=== PATIENT | female | born 1945 | race Caucasian/White ===

== ENCOUNTER 2022-09-01 14:12 | Inpatient (IN) | payer MEDICARE, OTHER, SELFPAY ==
[2022-09-01] VITALS (9 sets, daily range): BP systolic 105–206; BP diastolic 64–119; PULSE 68–90; RESP 14–25; TEMP 36.7–37.1; O2SAT 92–98; BMI 18.8
--- NOTE | 2022-09-01 15:02 | CTR_ITS ---
PROCEDURE INFORMATION: Exam: CT Head Without Contrast Exam date and time: 09/01/2022 3:50 PM Age: 77 years old Clinical indication: Stroke-like symptoms; Dizziness/giddiness; Generalized weakness; Additional info: Symptoms of acute stroke TECHNIQUE: Imaging protocol: Computed tomography of the head without contrast. Radiation optimization: All CT scans at this facility use at least one of these dose optimization techniques: automated exposure control; mA and/or kV adjustment per patient size (includes targeted exams where dose is matched to clinical indication); or iterative reconstruction. Other technique: STROKE PROTOCOL was implemented. REPORTING DATA: Count of CT and Cardiac NM exams in prior 12 months: This patient has received 0 known CTs and 0 known cardiac nuclear medicine studies in the 12 months prior to the current study. COMPARISON: No relevant prior studies available. RADIATION DOSE METRICS: Total DLP (mGy-cm): 967.73 FINDINGS: Brain: Normal. No hemorrhage. Unremarkable white matter. No mass effect. Cerebral ventricles: No ventriculomegaly. Paranasal sinuses: Visualized sinuses are unremarkable. No fluid levels. Mastoid air cells: Visualized mastoid air cells are well aerated. Bones/joints: Unremarkable. No acute fracture. Soft tissues: Unremarkable. CT/CT head thrombolytic 04256 IMPRESSION: No acute intracranial abnormality. ASSESSMENT: ASPECTS ([place] Stroke Program Early CT Score) is 10.
--- NOTE | 2022-09-01 15:10 | W.ED.DIZZY ---
Documented by User: Yossi Cuello DO 09/02/22 05:59 HPI - Dizziness General: Chief Complaint: Dizziness Stated Complaint: high bp, headache Time Seen by Provider: 09/01/22 15:02 Source: patient Mode of arrival: ambulatory History of Present Illness: HPI Narrative: 77-year-old female presents to the emergency room lightheadedness and dizziness seems confused recently. She was seen at a walk-in clinic they gave her last known well time of 123 today however talking to her family this has been going on for several weeks with worsening confusion in the last 24 hours or so. Her true last known well time would have been several weeks ago. She has no focal neurologic deficits. Her stroke score on initial exam is 0. She does have accelerated hypertension on arrival here. She is not currently on any medications she is no recent falls or trauma she does not take any anticoagulants. She denies chest or abdominal pain or any recent illness. MD elicited complaint: dizziness Onset (ago): week(s) (3) Severity: moderate Description: room spinning Exacerbating factors: nothing Relieving factors: nothing Associated symptoms: Denies change in hearing, chest pain, chills, cough, diaphoresis, ear discharge, ear pressure, fevers/chills, headache(s), malaise, nausea, nasal congestion, palpitations, rash, short of breath, syncope, tinnitus, vomiting or weakness Associated neuro symptoms: Deny confusion, difficulty speaking, dysphagia, diplopia, extremity weakness, facial numbness, facial weakness, gait changes, numbness in extremities or visual changes Review of Systems Const: Denies: fever(s), chills, fatigue, malaise or diaphoresis ENMT: Denies: ear discharge, change in hearing, tinnitus or nasal congestion Card: Denies: chest pain, palpitations or syncope Resp: Denies: dyspnea, productive cough or non-productive cough GI: Denies: abdominal pain, nausea, vomiting or dysphagia : Denies: flank pain, difficulty voiding, dysuria, urinary frequency or urinary urgency Skin/Breast: Denies: rash or pruritus Neuro: Denies: headache(s), numbness in extremities or confusion PFSH ED PFSH: Medical History (Updated 09/02/22 @ 05:59 by Yossi Cuello DO) Sciatica Sjogren syndrome with central nervous system involvement Surgical History (Updated 09/01/22 @ 17:23 by Gabriel Cherry MD) History of shoulder surgery Family History (Updated 09/01/22 @ 17:23 by Gabriel Cherry MD) Other Dementia Social History Smoking and tobacco status: never smoked Alcohol intake: never Substance/Drug Use: never Female Reproductive History: Spontaneous abortions: No Physical Exam Const: GENERAL APPEARANCE: cooperative and comfortable ORIENTATION/CONSCIOUSNESS: Yes awake HENMT: COMMON NORMALS: normocephalic, atraumatic and hearing grossly normal bilaterally HEAD & SCALP: normocephalic and atraumatic Resp: COMMON NORMALS: normal respiratory effort, No retractions, No use of accessory muscles and clear to auscultation bilaterally AUSCULTATION: clear to auscultation bilaterally Cardio: COMMON NORMALS: regular rate, regular rhythm and No murmurs present (Cardio) RATE: regular rate RHYTHM: regular rhythm GI: COMMON NORMALS: Soft to palpation and No hepatosplenomegaly present AUSCULTATION: Yes normoactive bowel sounds PALPATION: Yes Soft to palpation, No Tenderness to palpation present (GI), No Guarding due to palpation present (GI) and Yes No hepatosplenomegaly present Extremity: COMMON NORMALS: normal to inspection, capillary refill normal, no clubbing, cyanosis or edema, no calf tenderness and no pedal edema Skin: COMMON NORMALS: no rashes or lesions noted GENERAL SKIN EXAM: no rashes or lesions noted Course Vital Signs: Vital signs: Vital Signs Temperature 97.5 F L 09/02/22 04:00 Pulse Rate 80 09/02/22 04:00 Respiratory Rate 18 09/02/22 04:00 Blood Pressure 160/72 09/02/22 04:00 Pulse Oximetry 97 09/02/22 04:00 Oxygen Delivery Me thod Room Air 09/02/22 00:00 MDM - Dizziness Medical Decision Making Hyponatremia symptomatic, as well as accelerated hypertension. CT of the head negative no focal neurologic deficits suggestive of a CVA or TIA. Other possibilities include progressive neurologic disease worsening of dementia these may also exacerbate her symptoms of hyponatremia. Her markedly elevated blood pressure may also place lateral in her symptoms. Remainder the labs and imaging were reviewed with the patient. Reviewed labs and history with Dr. Suarez as well will admit for symptomatic hyponatremia and accelerated hypertension Patient presents here was being admitted for hyponatremia by Dr. Bowers she went to the bathroom she had fell she likely had a vagal episode with her bowel movement she did hit her head she has a slight nasal fracture no other injuries noted she is stable to go to the floor at this time her blood pressure here is normal EKG was normal she had no chest pain. Medical Records I reviewed the patient's medical records. Lab Data I reviewed the patient's lab results. 09/02/22 00:36 09/02/22 00:36 Radiology Impressions Chest X-Ray 09/01/22 17:01 IMPRESSION: 1. Left humerus surgical hardware in place. 2. Emphysematous changes. Cervical Spine CT 09/01/22 18:39 IMPRESSION: 1. Negative for fracture or dislocation. 2. Emphysematous changes. 3. Biapical pleuroparenchymal fibrosis. Face CT 09/01/22 18:39 IMPRESSION: Mildly depressed nasal bone fracture. Head CT 09/01/22 18:39 IMPRESSION: No acute intracranial abnormality. Laboratory Results WBC 7.0 10^3/uL (4.0-10.0) 09/01/22 15:39 RBC 4.19 10^6/uL (4.1-5.3) 09/01/22 15:39 Hgb 11.9 g/dL (11.5-15.3) 09/01/22 15:39 Hct 35.5 % (37.0-47.0) L 09/01/22 15:39 MCV 84.7 fl (81-99) 09/01/22 15:39 MCH 28.4 pg (28.0-34.0) 09/01/22 15:39 MCHC 33.5 g/dL (30.0-36.0) 09/01/22 15:39 RDW 13.2 % (12.1-15.1) 09/01/22 15:39 Plt Count 304 10^3/cmm (130-400) 09/01/22 15:39 MPV 9.6 fL (7.4-10.4) 09/01/22 15:39 Neut % (Auto) 86.0 % 09/01/22 15:39 Lymph % (Auto) 5.6 % 09/01/22 15:39 [place] % (Auto) 7.6 % 09/01/22 15:39 Eos % (Auto) 0.1 % 09/01/22 15:39 Baso % (Auto) 0.3 % 09/01/22 15:39 Neut # (Auto) 5.98 10^3/uL (1.8-7.7) 09/01/22 15:39 Lymph # (Auto) 0.4 10^3/uL (0.8-4.8) L 09/01/22 15:39 [place] # (Auto) 0.5 10^3/uL (0.2-0.9) 09/01/22 15:39 Eos # (Auto) 0.0 10^3/uL (0.0-0.8) 09/01/22 15:39 Baso # (Auto) 0.0 10^3/uL (0.0-0.1) 09/01/22 15:39 Nucleated RBC % (auto) 0 % 09/01/22 15:39 Nucleated RBCs # 0.0 /100WBC 09/01/22 15:39 PT 12.60 SECONDS (12.1-14.9) 09/01/22 15:39 INR 0.91 (0.8-1.2) 09/01/22 15:39 APTT 24.5 SECONDS (23.9-36.7) 09/01/22 15:39 Sodium 119 mmol/L (136-145) L* 09/01/22 15:39 Potassium 3.9 mmol/L (3.5-5.1) 09/01/22 15:39 Chloride 85 mmol/L (98-107) L 09/01/22 15:39 Carbon Dioxide 24 mmol/L (22-29) 09/01/22 15:39 Anion Gap 13.9 (5-19) 09/01/22 15:39 BUN 8 mg/dL (8-23) 09/01/22 15:39 Creatinine 0.8 mg/dL (0.5-0.9) 09/01/22 15:39 GFR Calculation Not Reportable 09/01/22 15:39 Glucose 105 mg/dL (65-115) 09/01/22 15:39 Calculated Osmolality 247 mOsm/kg (285-295) L 09/01/22 15:39 Calcium 8.6 mg/dL (8.5-10.5) 09/01/22 15:39 Total Bilirubin 0.4 mg/dL (0.15-1.2) 09/01/22 15:39 AST 19 U/L (0-32) 09/01/22 15:39 ALT 8 U/L (0-33) 09/01/22 15:39 Alkaline Phosphatase 101 U/L (35-105) 09/01/22 15:39 Troponin T Baseline 11 ng/L (0-10) H 09/01/22 19:15 Total Protein 8.1 g/dL (6.6-8.7) 09/01/22 15:39 Albumin 4.2 g/dL (3.5-5.2) 09/01/22 15:39 Globulin 3.9 g/dL (1.3-4.6) 09/01/22 15:39 TSH 2.90 uIU/mL (0.27-4.20) 09/01/22 15:39 Random Cortisol 20.03 ug/dL (2.47-19.5) H 09/01/22 15:39 Urine Color Yellow (Yellow) 09/01/22 16:02 Urine Appearance Clear (CLEAR) 09/01/22 16:02 Urine pH 6 (5-7) 09/01/22 16:02 Ur Specific Keller 1.015 (1.005-1.030) 09/01/22 16:02 Urine Protein Trace (Negative) 09/01/22 16:02 Urine Glucose (UA) Norm (Normal) 09/01/22 16:02 Urine Ketones 1+ (Negative) H 09/01/22 16:02 Urine Blood Neg (Negative) 09/01/22 16:02 Urine Nitrate Negative (Negative) 09/01/22 16:02 Urine Bilirubin Neg (Negative) 09/01/22 16:02 Urine Urobilinogen Norm mg/dL (Negative) 09/01/22 16:02 Ur Leukocyte Esterase Negative (Negative) 09/01/22 16:02 Urine RBC None /hpf (0-2) 09/01/22 16:02 Urine WBC 0-4 /hpf (0-5) H 09/01/22 16:02 Ur Squamous Epith Cells 0-4 /hpf (0-5) H 09/01/22 16:02 Amorphous Sediment Not Reportable 09/01/22 16:02 Urine Bacteria Trace /hpf (NONE) 09/01/22 16:02 Ur Random Sodium 85 mmol/L 09/01/22 16:02 Ur Random Potassium 48 mmol/L 09/01/22 16:02 Ur Random Chloride 80 mmol/L 09/01/22 16:02 Urine Opiates Screen Negative ng/mL (Negative) 09/01/22 16:02 Ur Barbiturates Screen Negative ng/mL (Negative) 09/01/22 16:02 Ur Phencyclidine Scrn Negative ng/mL (Negative) 09/01/22 16:02 Ur Amphetamines Screen Negative ng/mL (Negative) 09/01/22 16:02 U Benzodiazepines Scrn Negative ng/mL (Negative) 09/01/22 16:02 Urine Cocaine Screen Negative ng/mL (Negative) 09/01/22 16:02 U Marijuana (THC) Screen Negative ng/mL (Negative) 09/01/22 16:02 Coronavirus 229E (PCR) Not detected (NOT DETECT) 09/01/22 17:35 SARS-CoV-2 (PCR) Not detected (NOT DETECT) 09/01/22 17:35 Discharge Plan Discharge Patient Disposition: Admitted As Inpatient Admit Provider: Gabriel Cherry Clinical Impression: Hyponatremia, Hypertension Condition: Stable Coding Level of Care Code ED Exercise Specialist for Shelton Griggs NIH stroke score NIHSS Level Of Consciousness - 1a: 0 Level Of Consciousness Questions - 1b: Both Correct Level Of Consciousness Commands - 1c: Both Correct Best Gaze - 2: Normal Visual Gong - 3: No Visual Loss Facial Palsy - 4: Normal Motor Arm Right - 5: No Drift Motor Arm Left - 5: No Drift Motor Leg Right - 6: No Drift Motor Leg Left - 6: No Drift Limb Ataxia - 7: Absent Sensory - 8: Normal Best Language - 9: No Aphasia Dysarthia - 10: Normal Extinction And Inattention - 11: 0 Score Total Score: 0 Documented by User: Chayo Granados MD 09/01/22 19:44 HPI - Dizziness General: Chief Complaint: Dizziness Stated Complaint: high bp, headache Time Seen by Provider: 09/01/22 15:02 PFSH ED PFSH: Medical History (Updated 09/02/22 @ 05:59 by Yossi Cuello DO) Sciatica Sjogren syndrome with central nervous system involvement Surgical History (Updated 09/01/22 @ 17:23 by Gabriel Cherry MD) History of shoulder surgery Family History (Updated 09/01/22 @ 17:23 by Gabriel Cherry MD) Other Dementia Social History Smoking and tobacco status: never smoked Alcohol intake: never Substance/Drug Use: never Course Reevaluation(s): Reevaluation #1: Patient fell in the bathroom. She likely had a vagal episode as she did have a bowel movement stood up she is dizzy and passed out she did hit her head nose she now awake and alert her first blood pressure was in the 80s have a fluid bolus: Is now 105/54 EKG is normal we will get scans of her head face and neck at this time Time: 18:30 Vital Signs: Vital signs: Vital Signs Temperature 97.5 F L 09/02/22 04:00 Pulse Rate 80 09/02/22 04:00 Respiratory Rate 18 09/02/22 04:00 Blood Pressure 160/72 09/02/22 04:00 Pulse Oximetry 97 09/02/22 04:00 Oxygen Delivery Me thod Room Air 09/02/22 00:00 MDM - Dizziness Medical Decision Making Patient presents here was being admitted for hyponatremia by Dr. Bowers she went to the bathroom she had fell she likely had a vagal episode with her bowel movement she did hit her head she has a slight nasal fracture no other injuries noted she is stable to go to the floor at this time her blood pressure here is normal EKG was normal she had no chest pain. Lab Data 09/02/22 00:36 09/02/22 00:36 Radiology Impressions Chest X-Ray 09/01/22 17:01 IMPRESSION: 1. Left humerus surgical hardware in place. 2. Emphysematous changes. Cervical Spine CT 09/01/22 18:39 IMPRESSION: 1. Negative for fracture or dislocation. 2. Emphysematous changes. 3. Biapical pleuroparenchymal fibrosis. Face CT 09/01/22 18:39 IMPRESSION: Mildly depressed nasal bone fracture. Head CT 09/01/22 18:39 IMPRESSION: No acute intracranial abnormality. Laboratory Results WBC 7.0 10^3/uL (4.0-10.0) 09/01/22 15:39 RBC 4.19 10^6/uL (4.1-5.3) 09/01/22 15:39 Hgb 11.9 g/dL (11.5-15.3) 09/01/22 15:39 Hct 35.5 % (37.0-47.0) L 09/01/22 15:39 MCV 84.7 fl (81-99) 09/01/22 15:39 MCH 28.4 pg (28.0-34.0) 09/01/22 15:39 MCHC 33.5 g/dL (30.0-36.0) 09/01/22 15:39 RDW 13.2 % (12.1-15.1) 09/01/22 15:39 Plt Count 304 10^3/cmm (130-400) 09/01/22 15:39 MPV 9.6 fL (7.4-10.4) 09/01/22 15:39 Neut % (Auto) 86.0 % 09/01/22 15:39 Lymph % (Auto) 5.6 % 09/01/22 15:39 [place] % (Auto) 7.6 % 09/01/22 15:39 Eos % (Auto) 0.1 % 09/01/22 15:39 Baso % (Auto) 0.3 % 09/01/22 15:39 Neut # (Auto) 5.98 10^3/uL (1.8-7.7) 09/01/22 15:39 Lymph # (Auto) 0.4 10^3/uL (0.8-4.8) L 09/01/22 15:39 [place] # (Auto) 0.5 10^3/uL (0.2-0.9) 09/01/22 15:39 Eos # (Auto) 0.0 10^3/uL (0.0-0.8) 09/01/22 15:39 Baso # (Auto) 0.0 10^3/uL (0.0-0.1) 09/01/22 15:39 Nucleated RBC % (auto) 0 % 09/01/22 15:39 Nucleated RBCs # 0.0 /100WBC 09/01/22 15:39 PT 12.60 SECONDS (12.1-14.9) 09/01/22 15:39 INR 0.91 (0.8-1.2) 09/01/22 15:39 APTT 24.5 SECONDS (23.9-36.7) 09/01/22 15:39 Sodium 119 mmol/L (136-145) L* 09/01/22 15:39 Potassium 3.9 mmol/L (3.5-5.1) 09/01/22 15:39 Chloride 85 mmol/L (98-107) L 09/01/22 15:39 Carbon Dioxide 24 mmol/L (22-29) 09/01/22 15:39 Anion Gap 13.9 (5-19) 09/01/22 15:39 BUN 8 mg/dL (8-23) 09/01/22 15:39 Creatinine 0.8 mg/dL (0.5-0.9) 09/01/22 15:39 GFR Calculation Not Reportable 09/01/22 15:39 Glucose 105 mg/dL (65-115) 09/01/22 15:39 Calculated Osmolality 247 mOsm/kg (285-295) L 09/01/22 15:39 Calcium 8.6 mg/dL (8.5-10.5) 09/01/22 15:39 Total Bilirubin 0.4 mg/dL (0.15-1.2) 09/01/22 15:39 AST 19 U/L (0-32) 09/01/22 15:39 ALT 8 U/L (0-33) 09/01/22 15:39 Alkaline Phosphatase 101 U/L (35-105) 09/01/22 15:39 Troponin T Baseline 11 ng/L (0-10) H 09/01/22 19:15 Total Protein 8.1 g/dL (6.6-8.7) 09/01/22 15:39 Albumin 4.2 g/dL (3.5-5.2) 09/01/22 15:39 Globulin 3.9 g/dL (1.3-4.6) 09/01/22 15:39 TSH 2.90 uIU/mL (0.27-4.20) 09/01/22 15:39 Random Cortisol 20.03 ug/dL (2.47-19.5) H 09/01/22 15:39 Urine Color Yellow (Yellow) 09/01/22 16:02 Urine Appearance Clear (CLEAR) 09/01/22 16:02 Urine pH 6 (5-7) 09/01/22 16:02 Ur Specific Keller 1.015 (1.005-1.030) 09/01/22 16:02 Urine Protein Trace (Negative) 09/01/22 16:02 Urine Glucose (UA) Norm (Normal) 09/01/22 16:02 Urine Ketones 1+ (Negative) H 09/01/22 16:02 Urine Blood Neg (Negative) 09/01/22 16:02 Urine Nitrate Negative (Negative) 09/01/22 16:02 Urine Bilirubin Neg (Negative) 09/01/22 16:02 Urine Urobilinogen Norm mg/dL (Negative) 09/01/22 16:02 Ur Leukocyte Esterase Negative (Negative) 09/01/22 16:02 Urine RBC None /hpf (0-2) 09/01/22 16:02 Urine WBC 0-4 /hpf (0-5) H 09/01/22 16:02 Ur Squamous Epith Cells 0-4 /hpf (0-5) H 09/01/22 16:02 Amorphous Sediment Not Reportable 09/01/22 16:02 Urine Bacteria Trace /hpf (NONE) 09/01/22 16:02 Ur Random Sodium 85 mmol/L 09/01/22 16:02 Ur Random Potassium 48 mmol/L 09/01/22 16:02 Ur Random Chloride 80 mmol/L 09/01/22 16:02 Urine Opiates Screen Negative ng/mL (Negative) 09/01/22 16:02 Ur Barbiturates Screen Negative ng/mL (Negative) 09/01/22 16:02 Ur Phencyclidine Scrn Negative ng/mL (Negative) 09/01/22 16:02 Ur Amphetamines Screen Negative ng/mL (Negative) 09/01/22 16:02 U Benzodiazepines Scrn Negative ng/mL (Negative) 09/01/22 16:02 Urine Cocaine Screen Negative ng/mL (Negative) 09/01/22 16:02 U Marijuana (THC) Screen Negative ng/mL (Negative) 09/01/22 16:02 Coronavirus 229E (PCR) Not detected (NOT DETECT) 09/01/22 17:35 SARS-CoV-2 (PCR) Not detected (NOT DETECT) 09/01/22 17:35 Discharge Plan Discharge Patient Disposition: Admitted As Inpatient Admit Provider: Gabriel Cherry Clinical Impression: Hyponatremia, Hypertension Condition: Stable Coding Level of Care Code ED Exercise Specialist for Ebonyg Anson NIH stroke score Score Total Score: 0
--- NOTE | 2022-09-01 15:17 | ECG_ITS ---
[facility] Test Date: 2022-09-01 Pat Name: Maik Page Department: Room: Gender: Female Polymer Specialist: : 1945 Requested By: Yossi Etienne Order Number: [id number] Reading MD: Nate Wilson M.D. Measurements Intervals Castell Rate: 69 P: 60 LA: 142 QRS: -67 QRSD: 97 T: 55 QT: 402 QTc: 432 Interpretive Statements SINUS RHYTHM INCOMPLETE RIGHT BUNDLE BRANCH BLOCK [90+ ms QRS DURATION, TERMINAL R IN V1/V2, 40+ ms S IN I/aVL/V4/V5/V6] LEFT ANTERIOR FASCICULAR BLOCK [QRS AXIS <= -45, QR IN I, RS IN II] POSSIBLE LATERAL MYOCARDIAL INFARCTION , PROBABLY OLD [30 ms Q WAVE IN I/aVL/V5/V6] No previous ECG available for comparison Electronically Signed On 09-01-2022 17:09:22 CDT by Nate Wilson M.D. [email or web address]
[2022-09-01] MEDS: labetalol 5 mg/mL SDV 20mL 10 MG IVP (15:29)
[2022-09-01] MEDS: amlodipine 10 mg Tablet PO (15:29)
[2022-09-01 15:46] LABS: Basophils % 0.3 %; Eosinophils % 0.1 %; Hematocrit 35.5 % (37.0-47.0); Hemoglobin 11.9 g/dL (11.5-15.3); Lymphocytes # 0.4 10^3/uL (0.8-4.8); Lymphocytes % 5.6 %; Mean Corpuscular HGB Conc 33.5 g/dL (30.0-36.0); Mean Corpuscular Hemoglobin 28.4 pg (28.0-34.0); Mean Corpuscular Volume 84.7 fl (81-99); Mean Platelet Volume 9.6 fL (7.4-10.4); Monocytes # 0.5 10^3/uL (0.2-0.9); Monocytes % 7.6 %; Neutrophils # 5.98 10^3/uL (1.8-7.7); Nucleated Red Blood Cells % 0 %; Platelet Count 304 10^3/cmm (130-400); Red Blood Count 4.19 10^6/uL (4.1-5.3); Red Cell Distribution Width 13.2 % (12.1-15.1)
[2022-09-01 16:01] LABS: INR 0.91 (0.8-1.2)
[2022-09-01 16:02] LABS: Partial Thromboplastin Time 24.5 SECONDS (23.9-36.7)
[2022-09-01 16:07] LABS: Alanine Aminotransferase 8 U/L (0-33); Albumin Level 4.2 g/dL (3.5-5.2); Alkaline Phosphatase 101 U/L (35-105); Anion Gap 13.9 (5-19); Aspartate Amino Transferase 19 U/L (0-32); Blood Urea Nitrogen 8 mg/dL (8-23); Calcium 8.6 mg/dL (8.5-10.5); Carbon Dioxide 24 mmol/L (22-29); Chloride 85 mmol/L (98-107); Creatinine Clr Calc Pharmacy 50.6247; Globulin 3.9 g/dL (1.3-4.6); Glucose 105 mg/dL (65-115); Osmolality Calculated 247 mOsm/kg (285-295); Potassium 3.9 mmol/L (3.5-5.1); Total Bilirubin 0.4 mg/dL (0.15-1.2); Total Protein 8.1 g/dL (6.6-8.7)
[2022-09-01 16:13] LABS: Sodium 119 mmol/L (136-145)
[2022-09-01 16:37] LABS: Amphetamines Screen Urine Negative (Negative); Barbiturates Screen Urine Negative (Negative); Benzodiazepines Screen Urine Negative (Negative); Cocaine Screen Urine Negative (Negative); Opiate Screen Urine Negative (Negative); PCP Screen Urine Negative (Negative); THC Screen Urine Negative (Negative)
[2022-09-01 16:39] LABS: Add Urine Microscopic? YES; Bilirubin Urine Neg (Negative); Blood Urine Neg (Negative); Glucose Urine UA Norm (Normal); Ketones Urine 1+ (Negative); Leukocyte Esterase Urine Negative (Negative); Nitrate Urine Negative (Negative); Protein Urine Trace (Negative); Specific Gravity, Urine 1.015 (1.005-1.030); Urine Appearance Clear (CLEAR); Urine Color Yellow (Yellow); Urobilinogen Urine Norm (Negative); WBC Urine 0-4 /hpf (0-5); pH Urine 6 (5-7)
[2022-09-01 16:40] LABS: Add Urine Culture? No; Bacteria Urine TRACE /hpf; Squamous Epithelial Cell Urine 0-4 /hpf (0-5)
--- NOTE | 2022-09-01 17:01 | XRR_ITS ---
PROCEDURE INFORMATION: Exam: XR Chest Exam date and time: 09/01/2022 5:09 PM Age: 77 years old Clinical indication: Other: Hyponatremia TECHNIQUE: Imaging protocol: Radiologic exam of the chest. Views: 1 view. COMPARISON: No relevant prior studies available. FINDINGS: Lungs: Emphysematous changes. Pleural spaces: Unremarkable. No pleural effusion. No pneumothorax. Heart/Mediastinum: Unremarkable. No cardiomegaly. Bones/joints: Left humerus surgical hardware in place. XR/XR chest 1V portable [id number] IMPRESSION: 1. Left humerus surgical hardware in place. 2. Emphysematous changes.
--- NOTE | 2022-09-01 17:18 | PM.HP ---
Providers/Chief Complaint Admitting Physician: Gabriel Cherry MD, hospitalist Primary Care Provider: Andres Poole DO Chief Complaint: high bp, headache History of Present Illness Maik Page is a 77 year old female with history of Sjogren's syndrome who presents to the hospital with complaints of dizziness, headache, some nausea for approximately the last 24 hours. She reports the headache is frontal. She has not vomited. She has had no diarrhea, fever. Has had a slight cough, which is nonproductive. Denies any weakness on one side of the other. Has been taking some ibuprofen lately for headache. No new medications. States she drinks a lot of water secondary to her Sjogren's. Review of Systems General: Reports: 10 or more systems reviewed and unremarkable except in HPI and below Const: Reports: fatigue; Denies: fever(s) or chills Card: Denies: chest pain Resp: Reports: non-productive cough; Denies: dyspnea GI: Denies: hematochezia or melena Neuro: Reports: headache(s) and dizziness; Denies: weakness in extremities Medications/Allergies Home Medications Medication Instructions Recorded Confirmed Last Taken Type cevimeline 30 mg capsule 30 mg PO BID 09/01/22 09/01/22 09/01/22 History ibuprofen 200 mg capsule 600 mg PO Q6H PRN Pain 09/01/22 09/01/22 Unknown History triamcinolone acetonide 0.1 % 1 applic dental BID 09/01/22 09/01/22 Unknown History dental paste Allergies Allergy/AdvReac Type Severity Reaction Status Date / Time No Known Allergies Allergy Verified 09/01/22 13:06 PFSH Acute PFSH: Medical History (Updated 09/01/22 @ 17:30 by Gabriel Cherry MD) Sciatica Sjogren syndrome with central nervous system involvement Surgical History (Updated 09/01/22 @ 17:23 by Gabriel Cherry MD) History of shoulder surgery Family History (Updated 09/01/22 @ 17:23 by Gabriel Cherry MD) Other Dementia Social History Smoking and tobacco status: never smoked Alcohol intake: never Substance/Drug Use: never Female Reproductive History: Spontaneous abortions: No Vitals/I&O/Wt Last Vital Signs Temp 98.0 F 09/01/22 14:20 Pulse 74 09/01/22 17:01 Resp 21 H 09/01/22 17:01 BP 137/119 09/01/22 17:01 Pulse Ox 95 09/01/22 17:01 O2 Del Method Room Air 09/01/22 14:20 Weight last 48 hrs Weight 49.895 kg Physical Exam Narrative: General exam is a white female, no distress HEENT: Pupils equally round. Oropharynx clear. Neck is supple no lymphadenopathy thyromegaly Cardiovascular regular rate and rhythm, no murmur Lungs clear no crackles. A few faint wheezes are heard Abdomen is soft nontender positive bowel sounds. No obvious organomegaly exam is deferred Extremities no cyanosis clubbing or edema, cap refill brisk Skin no rash Neuro no focal deficits Data 09/01/22 15:39 09/01/22 15:39 Other Labs: INR is normal LFTs are normal Calcium 8.6 I have ordered a TSH and cortisol level Albumin normal at 4.2 Urinalysis with a specific gravity of 1.015 I have ordered urine electrolytes Urine drug screen negative EKG demonstrates normal sinus rhythm, left axis deviation, right bundle branch block CT head demonstrated no acute changes I have ordered a chest x-ray, reviewed this personally and this demonstrates some previous shoulder surgery, possible COPD A&P Assessment and plan (1) Hyponatremia: Patient presents with hyponatremia, with some symptoms of dizziness and slight nausea. It is unknown the chronicity but she seems to think she was told she had some degree of hyponatremia 4 to 6 months ago. Unfortunately we do not have any laboratory here. Admission She does not appear to have any evidence of fluid overload. 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 Check urine electrolytes. Repeat sodium in 4 hours Restrict fluids Start salt tablets Lasix 20 mg IV x1. She did receive some fluid in the emergency department. Check TSH and cortisol level (2) Hypertension: Patient with markedly elevated blood pressure on arrival. Etiology could be headache, or she could have an underlying issue with hypertension She has received Norvasc 10 mg in the emergency department Add hydralazine as needed Plan Other medical problems as outlined in past medical history Full code Lovenox for DVT prophylaxis Attestations Medical Necessity Statement*: Will require greater than 2 midnight stay for evaluation and treatment of hyponatremia Coding Level of Care Code Acute Code for Chg Fwd Diagnoses Hyponatremia E87.1 Hypertension I10
[2022-09-01] MEDS: FUROsemide 10 mg/mL SDV 2mL 20 MG IVP (17:26)
[2022-09-01] MEDS: hyDRALAzine 20 mg/mL INJ 1 mL 10 MG IVP (17:36)
--- NOTE | 2022-09-01 18:39 | CTR_ITS ---
PROCEDURE INFORMATION: Exam: CT Head Without Contrast Exam date and time: 09/01/2022 6:56 PM Age: 77 years old Clinical indication: Injury or trauma; Fall; Concussion/head injury; Without loss of consciousness TECHNIQUE: Imaging protocol: Computed tomography of the head without contrast. Radiation optimization: All CT scans at this facility use at least one of these dose optimization techniques: automated exposure control; mA and/or kV adjustment per patient size (includes targeted exams where dose is matched to clinical indication); or iterative reconstruction. REPORTING DATA: Count of CT and Cardiac NM exams in prior 12 months: This patient has received 0 known CTs and 0 known cardiac nuclear medicine studies in the 12 months prior to the current study. COMPARISON: CT head thrombolytic [id number] 09/01/2022 3:50 PM RADIATION DOSE METRICS: Total DLP (mGy-cm): 1088.85 FINDINGS: Brain: Normal. No hemorrhage. Unremarkable white matter. No mass effect. Cerebral ventricles: No ventriculomegaly. Paranasal sinuses: Visualized sinuses are unremarkable. No fluid levels. Mastoid air cells: Visualized mastoid air cells are well aerated. Bones/joints: Unremarkable. No acute fracture. Soft tissues: Unremarkable. CT/CT head wo con* [id number] IMPRESSION: No acute intracranial abnormality.
--- NOTE | 2022-09-01 18:39 | CTR_ITS ---
PROCEDURE INFORMATION: Exam: CT Cervical Spine Without Contrast Exam date and time: 09/01/2022 6:56 PM Age: 77 years old Clinical indication: Injury or trauma; Fall; Concussion/head injury TECHNIQUE: Imaging protocol: Computed tomography of the cervical spine without contrast. Radiation optimization: All CT scans at this facility use at least one of these dose optimization techniques: automated exposure control; mA and/or kV adjustment per patient size (includes targeted exams where dose is matched to clinical indication); or iterative reconstruction. REPORTING DATA: Count of CT and Cardiac NM exams in prior 12 months: This patient has received 0 known CTs and 0 known cardiac nuclear medicine studies in the 12 months prior to the current study. COMPARISON: CT head thrombolytic [id number] 09/01/2022 3:50 PM RADIATION DOSE METRICS: Total DLP (mGy-cm): 146.1 FINDINGS: Bones/joints: No acute fracture. Normal alignment. C2-C3: No significant disc bulge or herniation. No severe spinal canal stenosis. No significant neural foraminal narrowing. C3-C4: No significant disc bulge or herniation. No severe spinal canal stenosis. No significant neural foraminal narrowing. C4-C5: No significant disc bulge or herniation. No severe spinal canal stenosis. No significant neural foraminal narrowing. C5-C6: No significant disc bulge or herniation. No severe spinal canal stenosis. No significant neural foraminal narrowing. C6-C7: No significant disc bulge or herniation. No severe spinal canal stenosis. No significant neural foraminal narrowing. C7-T1: No significant disc bulge or herniation. No severe spinal canal stenosis. No significant neural foraminal narrowing. Lungs: Emphysematous changes. Biapical pleuroparenchymal fibrosis. Soft tissues: Carotid artery atherosclerotic calcifications. CT/CT cervical spin wo con* [id number] IMPRESSION: 1. Negative for fracture or dislocation. 2. Emphysematous changes. 3. Biapical pleuroparenchymal fibrosis.
--- NOTE | 2022-09-01 18:39 | CTR_ITS ---
PROCEDURE INFORMATION: Exam: CT Maxillofacial Without Contrast Exam date and time: 09/01/2022 7:01 PM Age: 77 years old Clinical indication: Injury or trauma; Fall; Concussion/head injury; Without loss of consciousness TECHNIQUE: Imaging protocol: Computed tomography of the face without contrast. Radiation optimization: All CT scans at this facility use at least one of these dose optimization techniques: automated exposure control; mA and/or kV adjustment per patient size (includes targeted exams where dose is matched to clinical indication); or iterative reconstruction. REPORTING DATA: Count of CT and Cardiac NM exams in prior 12 months: This patient has received 0 known CTs and 0 known cardiac nuclear medicine studies in the 12 months prior to the current study. COMPARISON: CT head wo con* [id number] 09/01/2022 6:56 PM RADIATION DOSE METRICS: Total DLP (mGy-cm): 578.08 FINDINGS: Orbital cavities: Orbits are normal. Globes are unremarkable. Bones/joints: Mildly depressed nasal bone fracture. Paranasal sinuses: Normal. No air-fluid levels. Soft tissues: Unremarkable. CT/CT facial bones wo con* [id number] IMPRESSION: Mildly depressed nasal bone fracture.
[2022-09-01] MEDS: sodium chloride 0.9% 1,000 ML 999 ML IV (18:45)
[2022-09-01 18:59] LABS: Potassium, Radom Urine 48 mmol/L; Urine Random Chloride 80 mmol/L; Urine Random Sodium 85 mmol/L
--- NOTE | 2022-09-01 19:03 | PC.NURSE ---
Patient was assisted to the bathroom, shortly after that, the emergency call light went off. When Franklin entered the bathroom, the patient was on the floor with a small amount of blood next to her and on her face. I called for the charge nurse and Dr. Granados to come assist. Franklin assessed the pt, she was awake, she had no neck or back pain. She was assisted to a bed and taken back to her room. Her BP was 89/62, we started a fluids. Patient was awake talking to us in the room.
[2022-09-01 19:55] LABS: Adenovirus Not Detected (NOT DETECT); Chlamydia Pneumoniae Not Detected (NOT DETECT); Coronavirus 229E,HKU1,NL63,OC4 Not Detected (NOT DETECT); Human Metapneumovirus Not Detected (NOT DETECT); Human Rhinovirus/Enterovirus Not Detected (NOT DETECT); Influenza A Not Detected (NOT DETECT); Influenza A H1 Not Detected (NOT DETECT); Influenza A H1-2009 Not Detected (NOT DETECT); Influenza A H3 Not Detected (NOT DETECT); Influenza B Not Detected (NOT DETECT); Mycoplasma Pneumoniae Not Detected (NOT DETECT); Parainfluenza Virus Type 1 Not Detected (NOT DETECT); Parainfluenza Virus Type 2 Not Detected (NOT DETECT); Parainfluenza Virus Type 3 Not Detected (NOT DETECT); Parainfluenza Virus Type 4 Not Detected (NOT DETECT); Respiratory Syncytial Virus A Not Detected (NOT DETECT); Respiratory Syncytial Virus B Not Detected (NOT DETECT); SARS-COV-2 Not Detected (NOT DETECT)
[2022-09-01 19:56] LABS: Troponin(5th) Baseline 11 ng/L (0-10)
--- NOTE | 2022-09-01 20:10 | PC.NURSE ---
Received report from Franklin COLLINS at 1900.
[2022-09-01 20:26] LABS: Cortisol Random 20.03 ug/dL (2.47-19.5)
--- NOTE | 2022-09-01 20:38 | ECG_ITS ---
[facility] Test Date: 2022-09-01 Pat Name: Maik Page Department: Room: Gender: Female Lean Specialist: : [id number] Requested By: Chayo Granados Order Number: [id number] Vasiliy MD: Nik Herman M.D. Measurements Intervals [place] Rate: 64 P: 65 PA: 170 QRS: -72 QRSD: 111 T: 60 QT: 441 QTc: 457 Interpretive Statements SINUS RHYTHM INCOMPLETE RIGHT BUNDLE BRANCH BLOCK [90+ ms QRS DURATION, TERMINAL R IN V1/V2, 40+ ms S IN I/aVL/V4/V5/V6] LEFT ANTERIOR FASCICULAR BLOCK [QRS AXIS <= -45, QR IN I, RS IN II] Compared to ECG 09/01/2022 15:17:47 Myocardial infarct finding no longer present Electronically Signed On 09-02-2022 11:54:50 CDT by Nik Herman M.D. [id number]
[2022-09-01 21:25] LABS: Troponin 5 2HR 10.66 ng/L (0-10)
[2022-09-01 21:26] LABS: Blood Urea Nitrogen 8 mg/dL (8-23); Calcium 8.8 mg/dL (8.5-10.5); Carbon Dioxide 21 mmol/L (22-29); Creatinine Clr Calc Pharmacy 50.6247; Glucose 149 mg/dL (65-115)
[2022-09-01] MEDS: enoxaparin 40 mg/0.4 mL Syringe SUBCUT (21:26)
[2022-09-01] MEDS: sodium chloride 1 gm Tablet PO (21:26)
[2022-09-01 21:29] LABS: Troponin 5 2HR Delta -0.34 ABS# (0-10)
[2022-09-01 21:38] LABS: Anion Gap 19.6 (5-19); Chloride 84 mmol/L (98-107); Osmolality Calculated 253 mOsm/kg (285-295); Potassium 3.6 mmol/L (3.5-5.1); Sodium 121 mmol/L (136-145)
[2022-09-01] MEDS: acetaminophen 325 mg Tablet 650 MG PO (23:00)
[2022-09-02] VITALS (8 sets, daily range): BP systolic 124–160; BP diastolic 54–90; PULSE 71–81; RESP 15–20; TEMP 36.4–37; O2SAT 94–97
[2022-09-02 00:43] LABS: Basophils % 0.2 %; Eosinophils % 0.1 %; Hematocrit 33.4 % (37.0-47.0); Hemoglobin 11.2 g/dL (11.5-15.3); Lymphocytes # 0.4 10^3/uL (0.8-4.8); Lymphocytes % 3.5 %; Mean Corpuscular HGB Conc 33.5 g/dL (30.0-36.0); Mean Corpuscular Hemoglobin 28.1 pg (28.0-34.0); Mean Corpuscular Volume 83.9 fl (81-99); Mean Platelet Volume 9.3 fL (7.4-10.4); Monocytes # 0.6 10^3/uL (0.2-0.9); Monocytes % 4.9 %; Neutrophils % 90.9 %; Nucleated Red Blood Cells % 0 %; Platelet Count 282 10^3/cmm (130-400); Red Blood Count 3.98 10^6/uL (4.1-5.3); Red Cell Distribution Width 13.2 % (12.1-15.1)
[2022-09-02 01:02] LABS: Troponin 5 6HR 15.15 ng/L (0-10)
[2022-09-02 01:06] LABS: Alanine Aminotransferase 9 U/L (0-33); Albumin Level 3.9 g/dL (3.5-5.2); Alkaline Phosphatase 93 U/L (35-105); Anion Gap 16.3 (5-19); Aspartate Amino Transferase 16 U/L (0-32); Blood Urea Nitrogen 7 mg/dL (8-23); Calcium 8.2 mg/dL (8.5-10.5); Carbon Dioxide 23 mmol/L (22-29); Chloride 87 mmol/L (98-107); Creatinine Clr Calc Pharmacy 50.6247; Globulin 3.7 g/dL (1.3-4.6); Glucose 134 mg/dL (65-115); Osmolality Calculated 256 mOsm/kg (285-295); Potassium 3.3 mmol/L (3.5-5.1); Sodium 123 mmol/L (136-145); Total Bilirubin 0.5 mg/dL (0.15-1.2); Total Protein 7.6 g/dL (6.6-8.7)
[2022-09-02 01:09] LABS: Troponin 5 6HR Delta 4.15 ng/L (0-12)
[2022-09-02] MEDS: amlodipine 10 mg Tablet PO (08:10)
[2022-09-02] MEDS: sodium chloride 1 gm Tablet PO ×2 (08:10→17:36)
[2022-09-02] MEDS: potassium chloride ER 20 mEq Tablet 40 MEQ PO (08:10)
--- NOTE | 2022-09-02 10:03 | PM.PN ---
Subjective Subjective: Patient reports she is feeling better. More alert. Headache much improved. Believes she is much more clear. She fell in the emergency department, on the way to the bathroom yesterday. Repeat imaging was done, demonstrating a nasal bone fracture. Nurse relates she is ambulating well this morning Medications: Reviewed: Yes Vitals/I&O/Wt Last Vital Signs Temp 98.3 F 09/02/22 07:23 Pulse 71 09/02/22 07:23 Resp 16 09/02/22 07:23 BP 160/76 09/02/22 07:23 Pulse Ox 94 09/02/22 07:23 O2 Del Method Room Air 09/02/22 07:23 09/01/22 09/02/22 09/02/22 22:59 06:59 14:59 Intake Total 1000 / 1000 360 / 360 Output Total 200 / 200 Balance 800 / 800 360 / 360 Weight last 48 hrs Weight 49.895 kg Weight 49.895 kg Physical Exam Narrative: General exam is a white female, no distress, alert and oriented and much more interactive HEENT: Pupils equally round. Oropharynx clear. Contusion noted upper area of nose, with edema Neck is supple no lymphadenopathy thyromegaly Cardiovascular regular rate and rhythm, no murmur Lungs clear no crackles. A few faint wheezes are heard Abdomen is soft nontender positive bowel sounds. No obvious organomegaly Extremities no cyanosis clubbing or edema, cap refill brisk Neuro no focal deficits Data 09/02/22 00:36 09/02/22 00:36 A&P Assessment and plan (1) Hyponatremia: Patient presents with hyponatremia, with some symptoms of dizziness and slight nausea. It is unknown the chronicity but she seems to think she was told she had some degree of hyponatremia 4 to 6 months ago. Unfortunately we do not have any laboratory here. She does not appear to have any evidence of fluid overload. 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 She did receive some fluid in the emergency department. Check TSH and cortisol level Repeat sodium at 1300. Repeat CBC and BMP tomorrow (2) Hypertension: Patient with markedly elevated blood pressure on arrival. Etiology could be headache, or she could have an underlying issue with hypertension She has received Norvasc 10 mg in the emergency department Continue Norvasc 10 mg daily Add hydralazine as needed Plan Mild hypokalemia, supplement Other medical problems as outlined in past medical history Full code Lovenox for DVT prophylaxis Attestations Medical Necessity Statement*: Needs continued hospitalization secondary to symptomatic hyponatremia, currently being corrected Diagnoses Hyponatremia E87.1 Hypertension I10 Time Spent (min) 26
--- NOTE | 2022-09-02 10:59 | PC.CHAP ---
Pastoral Care Encounter/Spiritual Assessment Type of Contact [] Declined email marketing specialist visit [] Patient/Family/Request visit [] Outpatient visit [] Follow-up visit [] Physician referral [] Code/Alert [x] Routine visit [] Staff referral [] Actively dying [] Patient sleeping [] Family support [] [] Out of room [] Palliative care [] [] Receiving care in room [] Pre-surgical visit [] Trauma [] Long length of stay [] ICU visit [] Other: Relational/Emotional Strength [x] Patient feels connected with others/family/visitors/staff [] Distress [] Loneliness/isolation [] Abandonment Spirituality of Patient [x] Person of [place] [] Attends Tenriism of their [place] [x] Believes in Prayer [] Reads Bible or Restorationist materials [] There are Spiritual issues to be addressed Family Practice Md Interventions [x] Prayer [x] Active listening [] Non-anxious presence x[x] Spiritual/emotional support [] Crisis/trauma care [] Spiritual counseling [] Bereavement support [] Provided bereavement packet [] Provided Bible/devotional materials [] Provided toy/stuffed animal, coloring book to patient or family member [] Provided Communion [] Anointing/Clarita [] Salvation [x] Completed spiritual assessment [] Other: Impact on Illness or Injury [] Angry [] Fearful [] Anxious [] Often cries [] Exhaustion [] Unable to work [] Unable to attend anglican [] Unable to walk/stand [] Unable to read [] Unable to drive [] Unable to eat/drink [] Unable to sleep [] Unable to be with family [] Patient intubated [] Other: Summary Time spent with patient 5 min
[2022-09-02 14:19] LABS: Sodium 120 mmol/L (136-145)
[2022-09-02] MEDS: enoxaparin 40 mg/0.4 mL Syringe SUBCUT (20:08)
[2022-09-03] VITALS (8 sets, daily range): BP systolic 103–133; BP diastolic 53–69; PULSE 65–84; RESP 15–18; TEMP 36.3–36.9; O2SAT 93–98
[2022-09-03 05:47] LABS: Basophils % 0.6 %; Eosinophils # 0.1 10^3/uL (0.0-0.8); Eosinophils % 1.1 %; Hematocrit 35.7 % (37.0-47.0); Hemoglobin 11.8 g/dL (11.5-15.3); Lymphocytes # 0.9 10^3/uL (0.8-4.8); Lymphocytes % 13.1 %; Mean Corpuscular HGB Conc 33.1 g/dL (30.0-36.0); Mean Corpuscular Hemoglobin 28.2 pg (28.0-34.0); Mean Corpuscular Volume 85.4 fl (81-99); Mean Platelet Volume 10.1 fL (7.4-10.4); Monocytes # 0.9 10^3/uL (0.2-0.9); Monocytes % 13.2 %; Neutrophils # 4.65 10^3/uL (1.8-7.7); Neutrophils % 71.5 %; Nucleated Red Blood Cells % 0 %; Platelet Count 325 10^3/cmm (130-400); Red Blood Count 4.18 10^6/uL (4.1-5.3); Red Cell Distribution Width 13.3 % (12.1-15.1); White Blood Count 6.5 10^3/uL (4.0-10.0)
[2022-09-03 06:14] LABS: Blood Urea Nitrogen 7 mg/dL (8-23); Calcium 8.8 mg/dL (8.5-10.5); Carbon Dioxide 23 mmol/L (22-29); Chloride 89 mmol/L (98-107); Creatinine Clr Calc Pharmacy 50.6247; Glucose 77 mg/dL (65-115); Magnesium 1.9 mg/dL (1.7-2.3); Osmolality Calculated 255 mOsm/kg (285-295); Sodium 124 mmol/L (136-145)
[2022-09-03 06:19] LABS: Anion Gap 15.9 (5-19); Potassium 3.9 mmol/L (3.5-5.1)
[2022-09-03] MEDS: sodium chloride 1 gm Tablet PO ×2 (08:24→17:00)
[2022-09-03] MEDS: amlodipine 10 mg Tablet PO (08:24)
--- NOTE | 2022-09-03 09:49 | PM.PN ---
Subjective Subjective: Patient reports she seems to ambulate better with a walker. She states she is not nauseated. She is trying to abide by the fluid restriction. No headache today. Medications: Reviewed: Yes Vitals/I&O/Wt Last Vital Signs Temp 97.4 F L 09/03/22 07:32 Pulse 65 09/03/22 07:32 Resp 18 09/03/22 07:32 BP 133/69 09/03/22 07:32 Pulse Ox 98 09/03/22 07:32 O2 Del Method Room Air 09/03/22 07:32 09/02/22 09/03/22 09/03/22 22:59 06:59 14:59 Intake Total 120 / 720 240 / 240 Output Total 250 / 250 250 / 500 Balance -250 / 350 -130 / 220 240 / 240 Weight last 48 hrs Weight 49.895 kg Weight 49.895 kg Physical Exam Narrative: General exam no distress Neck is supple no lymphadenopathy thyromegaly Cardiovascular regular rate and rhythm, no murmur Lungs clear no crackles. Abdomen is soft nontender positive bowel sounds. No obvious organomegaly Extremities no cyanosis clubbing or edema, cap refill brisk Data 09/03/22 04:22 09/03/22 04:22 A&P Assessment and plan (1) Hyponatremia: Patient presents with hyponatremia, with some symptoms of dizziness and slight nausea. It is unknown the chronicity but she seems to think she was told she had some degree of hyponatremia 4 to 6 months ago. Unfortunately we do not have any laboratory here. She does not appear to have any evidence of fluid overload. 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 124. TSH and cortisol level reviewed and not a concern Continue to restrict fluids Continue salt tablets Lasix 20 mg IV now Repeat sodium early this afternoon Repeat BMP tomorrow Suspect she will need 1 more day (2) Hypertension: Patient with markedly elevated blood pressure on arrival. Etiology could be headache, or she could have an underlying issue with hypertension She has received Norvasc 10 mg in the emergency department Continue Norvasc 10 mg daily Add hydralazine as needed Blood pressure is improved Plan Mild hypokalemia, supplement yesterday, normal today Other medical problems as outlined in past medical history Full code Lovenox for DVT prophylaxis Attestations Medical Necessity Statement*: Needs continued hospitalization secondary to hyponatremia, with need for close monitoring Diagnoses Hyponatremia E87.1 Hypertension I10 Time Spent (min) 25
[2022-09-03 14:14] LABS: Anion Gap 15.7 (5-19); Blood Urea Nitrogen 9 mg/dL (8-23); Carbon Dioxide 25 mmol/L (22-29); Chloride 85 mmol/L (98-107); Creatinine Clr Calc Pharmacy 50.6247; Glucose 103 mg/dL (65-115); Osmolality Calculated 253 mOsm/kg (285-295); Potassium 3.7 mmol/L (3.5-5.1); Sodium 122 mmol/L (136-145)
[2022-09-03] MEDS: FUROsemide 10 mg/mL SDV 10mL 60 MG IVP (16:06)
[2022-09-03] MEDS: enoxaparin 40 mg/0.4 mL Syringe SUBCUT (20:05)
[2022-09-03] MEDS: ondansetron 2 mg/ML SDV 2 mL 4 MG IVP (20:20)
[2022-09-03 21:06] LABS: Sodium 122 mmol/L (136-145)
[2022-09-04] VITALS (15 sets, daily range): BP systolic 100–120; BP diastolic 58–69; PULSE 67–79; RESP 15–20; TEMP 36.7–36.9; O2SAT 95–97
--- NOTE | 2022-09-04 04:09 | PC.NURSE ---
Loss of consciousness: RU[employer] WEB DEVELOPER answered bathroom light, shortly afterwards this nurse heard a yell for help. Upon entering the room found the RUBY [employer] WEB DEVELOPER holding the pt up and she sated that the pt had collapsed in her arms while standing at the sink washing her hands and saying that she didn't feel good. Lifted the pt legs up and carried her back to her bed. Once in the bed the pt woke and asked what happened. VS obtained and were stable, pt was A&OX4, neuro exam normal.
[2022-09-04 05:18] LABS: Anion Gap 14.9 (5-19); Blood Urea Nitrogen 11 mg/dL (8-23); Calcium 9.2 mg/dL (8.5-10.5); Carbon Dioxide 26 mmol/L (22-29); Chloride 86 mmol/L (98-107); Glucose 84 mg/dL (65-115); Osmolality Calculated 255 mOsm/kg (285-295); Potassium 3.9 mmol/L (3.5-5.1); Sodium 123 mmol/L (136-145)
[2022-09-04] MEDS: sodium chloride 1 gm Tablet PO ×3 (08:08→20:32)
--- NOTE | 2022-09-04 08:32 | P.CONIM_ITS ---
Providers/Reason For Consult Consulting Physician/Specialty*: [facility]/Nephrology Reason for Consult*: Hyponatremia Attending Physician: Gabriel Cherry MD Primary Care Provider: Andres Poole DO History of Present Illness History of Present Illness Maik Page is a 77 year old female With past medical history of Sjogren's syndrome presented to the hospital complaining of dizziness and nausea and weakness. Vital signs are stable, CT head was unremarkable lab data significant for sodium of 119. Patient was thought to be having SIADH based on fluid restriction and salt tablets. Urine sodium was 85. Sodium is at 123 today. Review of Systems Narrative: Other review of systems negative Medications/Allergies Home Medications Medication Instructions Recorded Confirmed Last Taken Type cevimeline 30 mg capsule 30 mg PO BID 09/01/22 09/01/22 09/01/22 History ibuprofen 200 mg capsule 600 mg PO Q6H PRN Pain 09/01/22 09/01/22 Unknown History triamcinolone acetonide 0.1 % 1 applic dental BID 09/01/22 09/01/22 Unknown History dental paste Allergies Allergy/AdvReac Type Severity Reaction Status Date / Time No Known Allergies Allergy Verified 09/01/22 13:06 Current Medications Generic Name Dose Route Start Last Admin Trade Name Freq PRN Reason Stop Dose Admin Acetaminophen 650 mg 09/01/22 21:02 09/01/22 23:00 Acetaminophen 325 Mg Tablet PO 650 mg Q6H PRN Administration Mild/Mod Pain Or Temp >/= 101 Enoxaparin Sodium 40 mg 09/01/22 21:02 09/03/22 20:05 Enoxaparin 40 Mg/0.4 Ml Syringe SUBCUT 40 mg Q24H JOSE CRUZ Administration Hydralazine HCl 10 mg 09/01/22 17:21 09/01/22 17:36 Hydralazine 20 Mg/Ml Inj 1 Ml IVP 10 mg Q4H PRN Administration HYPERTENSION Ondansetron HCl 4 mg 09/01/22 21:02 09/03/22 20:20 Ondansetron 2 Mg/Ml Sdv 2 Ml IVP 4 mg Q6H PRN Administration NAUSEA AND VOMITING Sodium Chloride 1 gm 09/01/22 21:02 09/04/22 08:08 Sodium Chloride 1 Gm Tablet PO 1 gm BID JOSE CRUZ Administration PFSH Acute PFSH: Medical History (Updated 09/02/22 @ 05:59 by Yossi Cuello, DO) Sciatica Sjogren syndrome with central nervous system involvement Surgical History (Updated 09/01/22 @ 17:23 by Gabriel Cherry MD) History of shoulder surgery Family History (Updated 09/01/22 @ 17:23 by Gabriel Cherry MD) Other Dementia Social History Smoking and tobacco status: never smoked Alcohol intake: never Substance/Drug Use: never Female Reproductive History: Spontaneous abortions: No Vitals/I&O/Wt Last Vital Signs Temp 98.0 F 09/04/22 07:33 Pulse 72 09/04/22 07:33 Resp 16 09/04/22 07:33 BP 107/61 09/04/22 07:33 Pulse Ox 96 09/04/22 07:33 O2 Del Method Room Air 09/04/22 07:33 09/03/22 09/04/22 09/04/22 22:59 06:59 14:59 Intake Total 240 / 720 Output Total 250 / 250 Balance 240 / 720 -250 / 470 Physical Exam 2 Narrative: Patient is awake alert, no acute distress PERRLA, HEENT S1-S2 regular rate and rhythm per report Clear to auscultation per report No pedal edema Data 09/03/22 04:22 09/04/22 04:19 A&P Assessment and plan (1) Hyponatremia: 1. Hyponatremia: Appears euvolemic currently , unclear if patient has chronic hyponatremia. Sodium is 119 on presentation and currently at 123 with fluid restriction and salt tablets -Etiology still unclear though high urine sodium indicates probable SIADH but need urine osmolality. Ordered urine awesome-pending results -We will continue fluid restriction of 800 mL/day, increase salt tablets to 3 times a day, add urea tabs -Follow-up on cortisol and TSH levels -There is also concern for possible polydipsia due to xerostomia from Sjogren's, but patient states he only drinks about 32 ounces per day Consult Attestations Medical Necessity Statement: per medicine Coding Level of Care Code Acute Code for Chg Fwd Diagnoses Hyponatremia E87.1
--- NOTE | 2022-09-04 10:09 | PM.PN ---
Subjective Subjective: Patient had a little bit of nausea yesterday. Feels better today. No other complaints. Medications: Reviewed: Yes Vitals/I&O/Wt Last Vital Signs Temp 98.0 F 09/04/22 07:33 Pulse 72 09/04/22 07:33 Resp 16 09/04/22 07:33 BP 107/61 09/04/22 07:33 Pulse Ox 96 09/04/22 07:33 O2 Del Method Room Air 09/04/22 07:33 09/03/22 09/04/22 09/04/22 22:59 06:59 14:59 Intake Total 240 / 720 150 / 150 Output Total 250 / 250 Balance 240 / 720 -250 / 470 150 / 150 Physical Exam Narrative: General exam no distress Neck is supple no lymphadenopathy thyromegaly Cardiovascular regular rate and rhythm, no murmur Lungs clear no crackles. Abdomen is soft nontender positive bowel sounds. No obvious organomegaly Extremities no cyanosis clubbing or edema, cap refill brisk Data 09/03/22 04:22 09/04/22 04:19 A&P Assessment and plan (1) Hyponatremia: Patient presents with hyponatremia, with some symptoms of dizziness and slight nausea. It is unknown the chronicity but she seems to think she was told she had some degree of hyponatremia 4 to 6 months ago. Unfortunately we do not have any laboratory here. She does not appear to have any evidence of fluid overload. 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 123 today, 1 less than yesterday TSH and cortisol level reviewed and not a concern Continue to restrict fluids Continue salt tablets Repeat sodium in the afternoon Repeat BMP tomorrow Not safe yet for discharge Nephrology consultation, for evaluation to see if anything else can be done to increase sodium quicker. Have reinforced with nurses to make sure extra fluid has not been taken. (2) Hypertension: Patient with markedly elevated blood pressure on arrival. Etiology could be headache, or she could have an underlying issue with hypertension She has received Norvasc 10 mg in the emergency department Hold Norvasc today. Blood pressure normal Add hydralazine as needed Blood pressure is improved Plan Mild hypokalemia, supplement yesterday, normal today Other medical problems as outlined in past medical history Full code Lovenox for DVT prophylaxis Attestations Medical Necessity Statement*: Needs continued hospitalization secondary to moderate hyponatremia, not yet improved with need for close follow-up Diagnoses Hyponatremia E87.1 Hypertension I10 Time Spent (min) 27
[2022-09-04 16:08] LABS: Sodium 123 mmol/L (136-145)
[2022-09-04] MEDS: enoxaparin 40 mg/0.4 mL Syringe SUBCUT (20:32)
[2022-09-05] VITALS (11 sets, daily range): BP systolic 107–144; BP diastolic 64–75; PULSE 62–120; RESP 15–18; TEMP 36.4–37.4; O2SAT 93–97
[2022-09-05 05:22] LABS: Basophils % 0.5 %; Eosinophils # 0.1 10^3/uL (0.0-0.8); Eosinophils % 1.1 %; Hematocrit 36.4 % (37.0-47.0); Hemoglobin 12.2 g/dL (11.5-15.3); Lymphocytes # 0.9 10^3/uL (0.8-4.8); Lymphocytes % 11.3 %; Mean Corpuscular HGB Conc 33.5 g/dL (30.0-36.0); Mean Corpuscular Hemoglobin 28.5 pg (28.0-34.0); Mean Platelet Volume 9.6 fL (7.4-10.4); Monocytes % 13.8 %; Neutrophils # 5.46 10^3/uL (1.8-7.7); Neutrophils % 72.8 %; Nucleated Red Blood Cells % 0 %; Platelet Count 299 10^3/cmm (130-400); Red Blood Count 4.28 10^6/uL (4.1-5.3); Red Cell Distribution Width 13.7 % (12.1-15.1); White Blood Count 7.5 10^3/uL (4.0-10.0)
[2022-09-05 05:44] LABS: Magnesium 2.2 mg/dL (1.7-2.3)
[2022-09-05 05:46] LABS: Anion Gap 17.2 (5-19); Blood Urea Nitrogen 13 mg/dL (8-23); Calcium 8.7 mg/dL (8.5-10.5); Carbon Dioxide 25 mmol/L (22-29); Chloride 90 mmol/L (98-107); Creatinine Clr Calc Pharmacy 50.6247; Glucose 79 mg/dL (65-115); Osmolality Calculated 265 mOsm/kg (285-295); Potassium 4.2 mmol/L (3.5-5.1); Sodium 128 mmol/L (136-145)
--- NOTE | 2022-09-05 08:24 | PM.PN ---
Subjective Subjective: Patient reports she is feeling better. No nausea. Medications: Reviewed: Yes Vitals/I&O/Wt Last Vital Signs Temp 97.6 F 09/05/22 07:52 Pulse 71 09/05/22 07:52 Resp 16 09/05/22 07:52 BP 107/65 09/05/22 07:52 Pulse Ox 93 09/05/22 07:52 O2 Del Method Room Air 09/05/22 07:52 09/04/22 09/05/22 09/05/22 22:59 06:59 14:59 Intake Total 360 / 660 75 / 735 Balance 360 / 660 75 / 735 Physical Exam Narrative: General exam no distress Neck is supple no lymphadenopathy thyromegaly Cardiovascular regular rate and rhythm, no murmur Lungs clear no crackles. Abdomen is soft nontender positive bowel sounds. No obvious organomegaly Extremities no cyanosis clubbing or edema, cap refill brisk Neuro no obvious focal deficits Data 09/05/22 04:41 09/05/22 04:41 A&P Assessment and plan (1) Hyponatremia: Patient presents with hyponatremia, with some symptoms of dizziness and slight nausea. It is unknown the chronicity but she seems to think she was told she had some degree of hyponatremia 4 to 6 months ago. Unfortunately we do not have any laboratory here. She does not appear to have any evidence of fluid overload. 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 Discussed with patient more compliance with fluid restriction, and I lowered this from 1000-800 TSH and cortisol level reviewed and not a concern Overall improving with sodium level of 128 today Repeat BMP tomorrow. Likely discharge when sodium level is over 130 (2) Hypertension: Patient with markedly elevated blood pressure on arrival. Etiology could be headache, or she could have an underlying issue with hypertension She has received Norvasc 10 mg in the emergency department Holding any further blood pressure medicine now as blood pressure has been normal Plan Mild hypokalemia, resolved Other medical problems as outlined in past medical history Full code Lovenox for DVT prophylaxis Attestations Medical Necessity Statement*: Needs continued hospitalization for close follow-up of sodium, with it now slowly improving Diagnoses Hyponatremia E87.1 Hypertension I10 Time Spent (min) 24
--- NOTE | 2022-09-05 08:38 | PM.PN ---
Subjective Subjective: Denies any complaints Medications: Reviewed: Yes Vitals/I&O/Wt Last Vital Signs Temp 97.6 F 09/05/22 07:52 Pulse 71 09/05/22 07:52 Resp 16 09/05/22 07:52 BP 107/65 09/05/22 07:52 Pulse Ox 93 09/05/22 07:52 O2 Del Method Room Air 09/05/22 07:52 09/04/22 09/05/22 09/05/22 22:59 06:59 14:59 Intake Total 360 / 660 75 / 735 Balance 360 / 660 75 / 735 Physical Exam Narrative: Patient is awake alert, no acute distress PERRLA, HEENT S1-S2 regular rate and rhythm per report Clear to auscultation per report No pedal edema Data 09/05/22 04:41 09/05/22 04:41 A&P Assessment and plan (1) Hyponatremia: 1. Hyponatremia: Appears euvolemic currently , unclear if patient has chronic hyponatremia. Sodium is 119 on presentation and currently at 123 with fluid restriction and salt tablets -Etiology still unclear though high urine sodium indicates probable SIADH but need urine osmolality. Ordered urine Osm - pending results -We will continue fluid restriction of 800 mL/day, and salt tablets to 3 times a day, added urea tabs -There is also concern for possible polydipsia due to xerostomia from Sjogren's, but patient states she only drinks about 32 ounces per day Attestations Medical Necessity Statement*: per medicine Coding Level of Care Code Acute Code for [facility] Diagnoses Hyponatremia E87.1
[2022-09-05] MEDS: urea 15 gm Powder PO (08:43)
[2022-09-05] MEDS: sodium chloride 1 gm Tablet PO ×3 (08:43→20:24)
[2022-09-05 15:45] LABS: Osmolality Urine 419 mOsm/kg (50-1200)
[2022-09-05] MEDS: enoxaparin 40 mg/0.4 mL Syringe SUBCUT (20:24)
[2022-09-06 03:59] VITALS: BP 129/73; PULSE 58; RESP 16; TEMP 36.7; O2SAT 95
[2022-09-06 05:59] VITALS: PULSE 57
[2022-09-06 06:16] LABS: Anion Gap 13.7 (5-19); Blood Urea Nitrogen 16 mg/dL (8-23); Calcium 8.8 mg/dL (8.5-10.5); Carbon Dioxide 27 mmol/L (22-29); Chloride 92 mmol/L (98-107); Creatinine Clr Calc Pharmacy 50.6247; Glucose 92 mg/dL (65-115); Osmolality Calculated 269 mOsm/kg (285-295); Potassium 3.7 mmol/L (3.5-5.1); Sodium 129 mmol/L (136-145)
[2022-09-06 08:05] VITALS: BP 120/70; PULSE 73; RESP 16; TEMP 36.6; O2SAT 93
[2022-09-06] MEDS: sodium chloride 1 gm Tablet PO (08:37)
[2022-09-06] MEDS: urea 15 gm Powder PO (08:37)
[2022-09-06] MEDS: ondansetron 2 mg/ML SDV 2 mL 4 MG IVP (09:49)
--- NOTE | 2022-09-06 10:00 | PM.PN ---
Subjective Subjective: no new complaints Medications: Reviewed: Yes Vitals/I&O/Wt Last Vital Signs Temp 98 F 09/06/22 08:05 Pulse 73 09/06/22 08:05 Resp 16 09/06/22 08:05 BP 120/70 09/06/22 08:05 Pulse Ox 93 09/06/22 08:05 O2 Del Method Room Air 09/06/22 08:05 09/05/22 09/06/22 09/06/22 22:59 06:59 14:59 Intake Total 100 / 270 Balance 100 / 270 Physical Exam Narrative: Patient is awake alert, no acute distress PERRLA, HEENT S1-S2 regular rate and rhythm per report Clear to auscultation per report No pedal edema Data 09/05/22 04:41 09/06/22 04:25 A&P Assessment and plan (1) Hyponatremia: 1. Hyponatremia: Appears euvolemic currently , unclear if patient has chronic hyponatremia. 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 . -on fluid restriction of 800 mL/day, and salt tablets to 3 times a day, added urea tabs -There is also concern for possible polydipsia due to xerostomia from Sjogren's, but patient states she only drinks about 32 ounces per day Can DC home on 1200 ml /day fluid restriction , on salt tabs and urea tabs Attestations Medical Necessity Statement*: per medicine Coding Level of Care Code Acute Code for [facility] Diagnoses Hyponatremia E87.1
--- NOTE | 2022-09-06 10:17 | PC.SOCIAL ---
IMM Updated Updated pt on IMM. No questions voiced. Provided pt a copy. Initialed, dated, & timed copy in chart.
[2022-09-06 11:50] VITALS: BP 132/71; PULSE 60; RESP 15; TEMP 36.8; O2SAT 98
--- NOTE | 2022-09-06 12:22 | P.DS_ITS ---
Discharge Providers Date of Admission: 09/01/22 19:50 Date of Discharge: September 06, 2022 Attending Provider at Admission: Gabriel Cherry MD Attending Provider at Discharge: Chung Savage MD Primary Care Provider: Andres Poole DO Diagnoses at Discharge Discharge Diagnosis (1) Hyponatremia: Status: Acute Reason for Visit Reason for Visit: high bp, headache Hospital Course Hospital Course Maik Page is a 77 year old female with history of Sjogren's syndrome who presents to the hospital with complaints of dizziness, headache, some nausea for approximately the last 24 hours.? She reports the headache is frontal.? She has not vomited.? She has had no diarrhea, fever.? Has had a slight cough, which is nonproductive.? Denies any weakness on one side of the other.? Has been taking some ibuprofen lately for headache.? No new medications. Patient was admitted to [facility] for acute on chronic hyponatremia, likely secondary to SIADH, due to persistent hyponatremia, nephrology was consulted, managed with fluid restrictions, salt tablets, urea tablets, overall clinically improved. Serum sodium on discharge was 129, advised for fluid restrictions of 1200 mL/day, discharged on salt tablets, urea tablets, follow-up with primary care provider on Thursday for recheck blood pressure and recheck serum sodium levels. If she were to have any worsening symptomatology of headaches, dizziness go to the emergency room Physical Exam Const: COMMON NORMALS: no acute distress and patient oriented x3 Resp: COMMON NORMALS: normal respiratory effort, No retractions, No use of accessory muscles and clear to auscultation bilaterally AUSCULTATION: clear to auscultation bilaterally Cardio: COMMON NORMALS: regular rate, regular rhythm, S1 normal heart sound present and S2 normal heart sound present RATE: regular rate RHYTHM: regular rhythm HEART SOUNDS: S1 normal heart sound present and S2 normal heart sound present GI: COMMON NORMALS: Normal to inspection, nondistended, normoactive bowel sounds present and non-tender Extremity: COMMON NORMALS: no pedal edema Neuro: COMMON NORMALS: patient oriented x3 Psych: COMMON NORMALS: mental status grossly normal Discharge Data Studies Completed and Pending Completed Studies During Hospitalization Category Date Time Status CT cervical spin wo con* 33887 Stat Cat Scan 09/01/22 18:[address] facial bones wo con* [id number] Stat Cat Scan 09/01/22 18:[address] head thrombolytic [id number] Stat Cat Scan 09/01/22 15:[address] head wo con* [id number] Stat Cat Scan 09/01/22 18:39 Completed XR chest 1V portable [id number] Stat Exams 09/01/22 17:01 Completed Radiology Impressions Chest X-Ray 09/01/22 17:01 IMPRESSION: 1. Left humerus surgical hardware in place. 2. Emphysematous changes. Cervical Spine CT 09/01/22 18:39 IMPRESSION: 1. Negative for fracture or dislocation. 2. Emphysematous changes. 3. Biapical pleuroparenchymal fibrosis. Face CT 09/01/22 18:39 IMPRESSION: Mildly depressed nasal bone fracture. Head CT 09/01/22 18:39 IMPRESSION: No acute intracranial abnormality. Laboratory Results WBC 7.5 10^3/uL (4.0-10.0) 09/05/22 04:41 RBC 4.28 10^6/uL (4.1-5.3) 09/05/22 04:41 Hgb 12.2 g/dL (11.5-15.3) 09/05/22 04:41 Hct 36.4 % (37.0-47.0) L 09/05/22 04:41 MCV 85.0 fl (81-99) 09/05/22 04:41 MCH 28.5 pg (28.0-34.0) 09/05/22 04:41 MCHC 33.5 g/dL (30.0-36.0) 09/05/22 04:41 RDW 13.7 % (12.1-15.1) 09/05/22 04:41 Plt Count 299 10^3/cmm (130-400) 09/05/22 04:41 MPV 9.6 fL (7.4-10.4) 09/05/22 04:41 Neut % (Auto) 72.8 % 09/05/22 04:41 Lymph % (Auto) 11.3 % 09/05/22 04:41 [place] % (Auto) 13.8 % 09/05/22 04:41 Eos % (Auto) 1.1 % 09/05/22 04:41 Baso % (Auto) 0.5 % 09/05/22 04:41 Neut # (Auto) 5.46 10^3/uL (1.8-7.7) 09/05/22 04:41 Lymph # (Auto) 0.9 10^3/uL (0.8-4.8) 09/05/22 04:41 [place] # (Auto) 1.0 10^3/uL (0.2-0.9) H 09/05/22 04:41 Eos # (Auto) 0.1 10^3/uL (0.0-0.8) 09/05/22 04:41 Baso # (Auto) 0.0 10^3/uL (0.0-0.1) 09/05/22 04:41 Nucleated RBC % (auto) 0 % 09/05/22 04:41 Nucleated RBCs # 0.0 /100WBC 09/05/22 04:41 PT 12.60 SECONDS (12.1-14.9) 09/01/22 15:39 INR 0.91 (0.8-1.2) 09/01/22 15:39 APTT 24.5 SECONDS (23.9-36.7) 09/01/22 15:39 Sodium 129 mmol/L (136-145) L 09/06/22 04:25 Potassium 3.7 mmol/L (3.5-5.1) 09/06/22 04:25 Chloride 92 mmol/L (98-107) L 09/06/22 04:25 Carbon Dioxide 27 mmol/L (22-29) 09/06/22 04:25 Anion Gap 13.7 (5-19) 09/06/22 04:25 BUN 16 mg/dL (8-23) 09/06/22 04:25 Creatinine 0.6 mg/dL (0.5-0.9) 09/06/22 04:25 GFR Calculation Not Reportable 09/06/22 04:25 Glucose 92 mg/dL (65-115) 09/06/22 04:25 Calculated Osmolality 269 mOsm/kg (285-295) L 09/06/22 04:25 Calcium 8.8 mg/dL (8.5-10.5) 09/06/22 04:25 Magnesium 2.2 mg/dL (1.7-2.3) 09/05/22 04:41 Total Bilirubin 0.5 mg/dL (0.15-1.2) 09/02/22 00:36 AST 16 U/L (0-32) 09/02/22 00:36 ALT 9 U/L (0-33) 09/02/22 00:36 Alkaline Phosphatase 93 U/L (35-105) 09/02/22 00:36 Troponin T Baseline 11 ng/L (0-10) H 09/01/22 19:15 Troponin T 120 Minute 10.66 ng/L (0-10) H 09/01/22 20:58 Delta Troponin T -0.34 ABS# (0-10) L 09/01/22 20:58 Troponin T Hi Sens 6Hr 15.15 ng/L (0-10) H 09/02/22 00:36 Troponin T Hi Sens 6Hr Delta 4.15 ng/L (0-12) 09/02/22 00:36 Total Protein 7.6 g/dL (6.6-8.7) 09/02/22 00:36 Albumin 3.9 g/dL (3.5-5.2) 09/02/22 00:36 Globulin 3.7 g/dL (1.3-4.6) 09/02/22 00:36 TSH 2.90 uIU/mL (0.27-4.20) 09/01/22 15:39 Random Cortisol 20.03 ug/dL (2.47-19.5) H 09/01/22 15:39 Urine Color Yellow (Yellow) 09/01/22 16:02 Urine Appearance Clear (CLEAR) 09/01/22 16:02 Urine pH 6 (5-7) 09/01/22 16:02 Ur Specific [place] 1.015 (1.005-1.030) 09/01/22 16:02 Urine Protein Trace (Negative) 09/01/22 16:02 Urine Glucose (UA) Norm (Normal) 09/01/22 16:02 Urine Ketones 1+ (Negative) H 09/01/22 16:02 Urine Blood Neg (Negative) 09/01/22 16:02 Urine Nitrate Negative (Negative) 09/01/22 16:02 Urine Bilirubin Neg (Negative) 09/01/22 16:02 Urine Urobilinogen Norm mg/dL (Negative) 09/01/22 16:02 Ur Leukocyte Esterase Negative (Negative) 09/01/22 16:02 Urine RBC None /hpf (0-2) 09/01/22 16:02 Urine WBC 0-4 /hpf (0-5) H 09/01/22 16:02 Ur Squamous Epith Cells 0-4 /hpf (0-5) H 09/01/22 16:02 Amorphous Sediment Not Reportable 09/01/22 16:02 Urine Bacteria Trace /hpf (NONE) 09/01/22 16:02 Urine Osmolality 419 mOsm/kg (50-1200) 09/04/22 10:55 Ur Random Sodium 85 mmol/L 09/01/22 16:02 Ur Random Potassium 48 mmol/L 09/01/22 16:02 Ur Random Chloride 80 mmol/L 09/01/22 16:02 Urine Opiates Screen Negative ng/mL (Negative) 09/01/22 16:02 Ur Barbiturates Screen Negative ng/mL (Negative) 09/01/22 16:02 Ur Phencyclidine Scrn Negative ng/mL (Negative) 09/01/22 16:02 Ur Amphetamines Screen Negative ng/mL (Negative) 09/01/22 16:02 U Benzodiazepines Scrn Negative ng/mL (Negative) 09/01/22 16:02 Urine Cocaine Screen Negative ng/mL (Negative) 09/01/22 16:02 U Marijuana (THC) Screen Negative ng/mL (Negative) 09/01/22 16:02 Coronavirus 229E (PCR) Not detected (NOT DETECT) 09/01/22 17:35 SARS-CoV-2 (PCR) Not detected (NOT DETECT) 09/01/22 17:35 Vitals Last Vital Signs Temp 98.2 F 09/06/22 11:50 Pulse 60 09/06/22 11:50 Resp 15 09/06/22 11:50 BP 132/71 09/06/22 11:50 Pulse Ox 98 09/06/22 11:50 O2 Del Method Room Air 09/06/22 08:05 Discharge Plan Discharge Patient Disposition: Home Condition: Stable Prescriptions: New sodium chloride 1,000 mg Tablet,Soluble 1 g PO TID 15 Days Qty: 45 0RF Ure-Na 15 gram Powder In Packet 15 g PO DAILY 15 Days Qty: 15 0RF Continued ibuprofen 200 mg Capsule 600 mg PO Q6H PRN (Reason: Pain) triamcinolone acetonide 0.1 % paste 1 applic dental BID cevimeline 30 mg capsule 30 mg PO BID Discharge Orders: Discharge Order (Routine); Ordered 09/06/22 Ordered By: Chung Savage Referrals: Andres Poole DO [Primary Care Provider] - (Clinic will call patient with the appointment information. ) Discharge Diet: Cardiac Discharge Activity: Resume usual activity Patient Instructions: Opioid Safety Activity Restrictions/Additional Instructions: - Please talk to your fuel management handler on Thursday -Please limit fluid intake to 1200 mL/day -Please take salt tablets as prescribed -Take urea tablets as prescribed -See your primary care provider on Thursday for recheck serum sodium -Watch her blood pressure as I am discharging on salt tablets, have primary care provider recheck your blood pressure Discharge Attestations Time Spent in Discharge Care*: greater than 30 min Quality Metrics Clinical Quality Measures [ No reported AMI, CVA or VTE this stay] Coding Level of Care Code 20433 Total time (in minutes) for Discharge: 45 Diagnoses Hyponatremia E87.1
[2022-09-06 13:38] VITALS: BP 132/71; PULSE 60; RESP 15; TEMP 36.8; O2SAT 98
--- NOTE | 2022-09-06 14:19 | PC.NURSE ---
Patient discharge education reviewed with patient earlier in day after orders were placed. Ride was supposed to be here shortly but they have not showed up yet. Patient waiting in bed and that ride should be here soon.
== END 2022-09-06 15:06 | disposition home or self-care (01) | DRG 644 ==
LOC: ER 18:47 → MEDSURG 19:50
PROVIDERS: Family Medicine; Hospitalist; Admitting Provider Internal Medicine; Emergency Provider Emergency Medicine; PCP Family Medicine; Visit Provider Family Medicine
DX: E22.2 Syndrome of inappropriate secretion of antidiuretic hormone (principal); M35.07 Sjogren syndrome with central nervous system involvement; I10 Essential (primary) hypertension; E87.6 Hypokalemia; S02.2XXA Fracture of nasal bones, initial encounter for closed fracture; W18.30XA Fall on same level, unspecified, initial encounter; Y92.239 Unspecified place in hospital as the place of occurrence of the external cause
CPT/HCPCS: 12345; 36415; 70450; 70486; 71045; 72125; 80048; 80053; 80306; 81001; 82436; 82533; 83735; 83935; 84133; 84295; 84300; 84443; 84484; 85025; 85610; 85730; 87635; 93005; 96361; 96372; 96374; 96375; 99285; J0360; J1650; J1940; J2405; J3490; J7030; Q3014